=== PATIENT | male | born 1990 | race Two or more races ===

== ENCOUNTER 2016-11-21 22:14 | Emergency (ER) | payer OTHER ==
[~2016-11-21] VITALS: Ht 188 cm; Wt 104.3 kg
[~2016-11-21 22:14] MED LIST: ALPR2TAB2 PO
--- NOTE | 2016-11-21 22:20 | NUR ---
PT BIBRA. PER PT STATES SI/HI WITH PLAN, WANTS TO OD ON PILLS. PT AOX4 RR EVEN AND UNLABORED. NO SOB NOTED. NAD NOTED. NO NVD AT THIS TIME. PT PLACED ON MONITOR. PT NOT DIAPHORETIC. PT ADMITS TO DRINKING 6 BEERS EARLIER THIS EVENING.
--- NOTE | 2016-11-21 22:21 | NUR ---
URINE COLLECTED. CALLED LAB FOR RN LACTATION.
--- NOTE | 2016-11-21 22:24 | NUR ---
JULIETA CLARK AT BEDSIDE FOR EVAL.
[2016-11-21] MEDS ORDERED: OLANZAPINE 10 MG VIAL IM ONE ×2 (22:27→22:30)
[2016-11-21] MEDS ORDERED: LORAZEPAM 1 MG TABLET ONE (22:28)
[2016-11-21] MEDS ORDERED: WATER FOR INJECTION,STERILE 10 ML ONE (22:28)
[2016-11-21] MEDS ORDERED: LORAZEPAM 1 MG TABLET PO ONE (22:30)
--- NOTE | 2016-11-21 22:35 | NUR ---
LAB AT BEDSIDE FOR BLOOD DRAW.
[2016-11-21 22:46] LABS: BASOPHILS % (AUTO) 0.3 % (0.0-2.0); EOSINOPHILS # (AUTO) 0.2 /CMM (0.0-0.7); EOSINOPHILS % (AUTO) 2.5 % (0.0-6.0); HEMATOCRIT 47 % (39-51); HEMOGLOBIN 16.3 g/dL (13.5-17.5); LYMPHOCYTES # (AUTO) 2.2 /CMM (0.8-4.8); LYMPHOCYTES % (AUTO) 28.6 % (20.0-44.0); MEAN CORPUSCULAR HEMOGLOBIN 31 PG (26.0-33.0); MEAN CORPUSCULAR HGB CONC 35 g/dl (31.0-36.0); MEAN CORPUSCULAR VOLUME 88 fL (80-96); MONOCYTES # (AUTO) 0.6 /CMM (0.1-1.30); MONOCYTES % (AUTO) 7.7 % (2.0-12.0); NEUTROPHILS # (AUTO) 4.8 /CMM (1.8-8.9); NEUTROPHILS % (AUTO) 60.9 % (43.0-81.0); PLATELET COUNT (AUTO) 225 /CMM (150-450); RDW COEFFICIENT OF VARIATION 13.5 (11.5-15.0); RED BLOOD CELL COUNT(AUTO) 5.33 MIL/uL (4.5-6.0); WHITE BLOOD COUNT (AUTO) 7.8 K/uL (4.3-11.0)
[2016-11-21 22:57] LABS: CALCIUM, SERUM 7.6 mg/dL (8.5-10.1); POTASSIUM 3.9 mmol/L (3.5-5.1)
[2016-11-21 23:05] LABS: ALBUMIN 3.7 g/dL (3.4-5.0); BILIRUBIN,TOTAL 0.3 mg/dL (0.2-1.0); TOTAL PROTEIN, SERUM 7.1 g/dL (6.4-8.2)
[2016-11-21 23:05] LABS: APPEARANCE,URINE CLEAR (CLEAR); BILIRUBIN,URINE NEGATIVE (NEGATIVE); BLOOD, URINE NEGATIVE Ery/uL (NEGATIVE); COLOR,URINE YELLOW (YELLOW); KETONES,URINE TRACE (NEGATIVE); LEUKOCYTE ESTERASE ,URINE NEGATIVE (NEGATIVE); NITRITE, URINE NEGATIVE (NEGATIVE); PROTEIN,URINE NEGATIVE (NEGATIVE); UGLUCOSE NEGATIVE (NEGATIVE); UROBILINOGEN,URINE 0.2 EU/dL (0.2)
[2016-11-21 23:06] LABS: SALICYLATE 1.4 mg/dL (2.8-20.0)
[2016-11-21 23:19] LABS: RBC,URINE 0-2 /HPF (0-2); WBC,URINE 0-2 /HPF (0-3)
[2016-11-21 23:20] LABS: BACTERIA,URINE None seen /HPF (None Seen); MUCUS,URINE Few /LPF (None Seen); SQUAMOUS EPITHELIAL CELL,UR Rare /HPF (None Seen); URIC ACID CRYSTALS,URINE Many /HPF (None Seen)
--- NOTE | 2016-11-21 23:22 | NUR ---
ART AT BEDSIDE FOR EVAL.
--- NOTE | 2016-11-22 02:07 | NUR ---
REPORT GIVEN TO ROSI/RN AT [facility] ON BEHALF OF PRIMARY NURSE ANA
[2016-11-22 02:09] VITALS: BP 135/73
== END 2016-11-22 02:09 ==
LOC: ER 22:22
DX: R45.851 Suicidal ideations (principal); R45.850 Homicidal ideations; J45.909 Unspecified asthma, uncomplicated; F20.9 Schizophrenia, unspecified; F17.200 Nicotine dependence, unspecified, uncomplicated
CPT/HCPCS: 36415 ×2; 80048; 80076; 80305; 80329; 81001; 85025; 96372; 99285; 99406; A4606; G0480 ×3; J3490; Z7610; 81000-TC

== ENCOUNTER 2017-06-10 00:05 | Emergency (ER) | payer OTHER ==
[~2017-06-10] VITALS: Ht 188 cm; Wt 104.3 kg
--- NOTE | 2017-06-10 00:40 | NUR ---
26 YO MALE BB SELF, STATES HES BEEN HAVING SUICIDAL THOUGHTS AND HE HAS BEEN OFF HIS OF BIPOLAR MEDS FOR 2 MONTHS. PATIENT AMBULATED TO ER BED, SKIN WARM AND DRY, RESP EVEN AND UNLABORED. AWAITING ORDERS FROM PROVIDER, WILL CONTINUE TO MONITOR
[2017-06-10 01:18] LABS: BASOPHILS % (AUTO) 0.3 % (0.0-2.0); EOSINOPHILS % (AUTO) 0.5 % (0.0-6.0); HEMATOCRIT 47 % (39-51); HEMOGLOBIN 16.3 g/dL (13.5-17.5); LYMPHOCYTES # (AUTO) 1.7 /CMM (0.8-4.8); LYMPHOCYTES % (AUTO) 20.4 % (20.0-44.0); MEAN CORPUSCULAR HEMOGLOBIN 30 PG (26.0-33.0); MEAN CORPUSCULAR HGB CONC 35 g/dl (31.0-36.0); MEAN CORPUSCULAR VOLUME 87 fL (80-96); MONOCYTES # (AUTO) 0.8 /CMM (0.1-1.30); MONOCYTES % (AUTO) 9.1 % (2.0-12.0); NEUTROPHILS # (AUTO) 5.9 /CMM (1.8-8.9); NEUTROPHILS % (AUTO) 69.7 % (43.0-81.0); PLATELET COUNT (AUTO) 213 /CMM (150-450); RDW COEFFICIENT OF VARIATION 13.1 (11.5-15.0); RED BLOOD CELL COUNT(AUTO) 5.42 MIL/uL (4.5-6.0); WHITE BLOOD COUNT (AUTO) 8.5 K/uL (4.3-11.0)
[2017-06-10 01:25] LABS: APPEARANCE,URINE SL CLOUDY (CLEAR); BILIRUBIN,URINE 1+ (NEGATIVE); BLOOD, URINE 3+ Ery/uL (NEGATIVE); COLOR,URINE DARK YELLO (YELLOW); KETONES,URINE TRACE (NEGATIVE); LEUKOCYTE ESTERASE ,URINE 2+ (NEGATIVE); NITRITE, URINE NEGATIVE (NEGATIVE); PROTEIN,URINE TRACE mg/dl (NEGATIVE); UGLUCOSE NEGATIVE (NEGATIVE); UROBILINOGEN,URINE 0.2 EU/dL (0.2)
[2017-06-10 01:30] LABS: CALCIUM, SERUM 9.4 mg/dL (8.5-10.1); CARBON DIOXIDE 28 mmol/L (21-32); CHLORIDE 106 mmol/L (98-107); CREATININE 1.1 mg/dL (0.6-1.3); GLUCOSE 99 mg/dL (74-106); SODIUM SERUM 144 mmol/L (136-145); UREA NITROGEN, BLOOD 7 mg/dL (7-18)
[2017-06-10 01:33] LABS: BACTERIA,URINE Many /HPF (None Seen); MUCUS,URINE Few /LPF (None Seen); SQUAMOUS EPITHELIAL CELL,UR Moderate /HPF (None Seen); WBC,URINE 51-80 /HPF (0-3)
[2017-06-10 01:35] LABS: ALANINE AMINOTRANSFERASE 234 U/L (12-78); ALCOHOL, BLOOD < 3 mg/dL (0-0); ALKALINE PHOSPHATASE 67 U/L (46-116); ASPARTATE AMINOTRANSFERASE 102 U/L (15-37); BILIRUBIN,DIRECT 0.1 mg/dL (0.0-0.2); BILIRUBIN,TOTAL 0.5 mg/dL (0.2-1.0); TOTAL PROTEIN, SERUM 7.9 g/dL (6.4-8.2)
[2017-06-10 01:36] LABS: ACETAMINOPHEN 0 ug/ml (10-30)
--- NOTE | 2017-06-10 02:08 | NUR ---
PATIENT IS RESTING IN ER BED, NO DISTRESS NOTED, WILL CONTINUE TO MONITOR
--- NOTE | 2017-06-10 03:08 | NUR ---
PT ACCEPTED BY DR. IGNACIO AND CAN GO TO [facility] AFTER RN-TO-RN REPORT. [phone] ext [phone]
[2017-06-10] MEDS ORDERED: CIPROFLOXACIN HCL 500 MG TABLET ONE (03:17)
--- NOTE | 2017-06-10 03:18 | NUR ---
REPORT GIVEN TO YAKELIN AT [facility]
--- NOTE | 2017-06-10 03:19 | NUR ---
CALLED [facility] FOR TRANSPORT. #[phone] ETA: 1 HOUR
[2017-06-10] MEDS: CIPROFLOXACIN HCL 250 MG TABLET PO ONE (03:21)
[2017-06-10 04:15] VITALS: BP 133/93
== END 2017-06-10 04:16 ==
LOC: ER 00:05
DX: R45.851 Suicidal ideations (principal); F20.9 Schizophrenia, unspecified; F31.9 Bipolar disorder, unspecified; J45.909 Unspecified asthma, uncomplicated; N39.0 Urinary tract infection, site not specified; F10.10 Alcohol abuse, uncomplicated; Z59.0 Homelessness
CPT/HCPCS: 36415; 80048; 80076; 80305; 80329; 81001; 85025; 87086; 99285; A4606; G0480 ×2; Z7610; 81000-TC

== ENCOUNTER 2017-07-04 01:03 | Emergency (ER) | payer OTHER ==
[~2017-07-04] VITALS: Ht 180.3 cm; Wt 97.5 kg
[2017-07-04 01:30] VITALS: BP 127/75
--- NOTE | 2017-07-04 01:30 | NUR ---
PT BIB SELF, PT STATES HE "NEEDS MEDICAL CLEARANCE TO GO TO [facility]". PT STATES HE IS "DEPRESED". DENIES SI & HI. PT STATES HE WANTS VOLUNTARY ADMISSION TO [facility]; WAS TOLD TO GO ER FOR LAB WORK. RESP EVEN AND UNLABORED. NO S/S OF ACUTE DISTRESS NOTED. SKIN PINK AND WARM TO TOUCH. AWAITING MD ASCENCIO.
[2017-07-04 01:50] LABS: BASOPHILS # (AUTO) 0.1 /CMM (0.0-0.2); BASOPHILS % (AUTO) 0.6 % (0.0-2.0); EOSINOPHILS # (AUTO) 0.3 /CMM (0.0-0.7); EOSINOPHILS % (AUTO) 3.7 % (0.0-6.0); HEMATOCRIT 46 % (39-51); HEMOGLOBIN 15.8 g/dL (13.5-17.5); LYMPHOCYTES # (AUTO) 2.8 /CMM (0.8-4.8); LYMPHOCYTES % (AUTO) 35.3 % (20.0-44.0); MEAN CORPUSCULAR HEMOGLOBIN 30 PG (26.0-33.0); MEAN CORPUSCULAR HGB CONC 35 g/dl (31.0-36.0); MEAN CORPUSCULAR VOLUME 87 fL (80-96); MONOCYTES # (AUTO) 0.8 /CMM (0.1-1.30); MONOCYTES % (AUTO) 9.8 % (2.0-12.0); NEUTROPHILS % (AUTO) 50.6 % (43.0-81.0); PLATELET COUNT (AUTO) 231 /CMM (150-450); RDW COEFFICIENT OF VARIATION 12.9 (11.5-15.0); RED BLOOD CELL COUNT(AUTO) 5.26 MIL/uL (4.5-6.0); WHITE BLOOD COUNT (AUTO) 7.9 K/uL (4.3-11.0)
[2017-07-04 01:56] LABS: APPEARANCE,URINE CLEAR (CLEAR); BILIRUBIN,URINE NEGATIVE (NEGATIVE); BLOOD, URINE NEGATIVE Ery/uL (NEGATIVE); COLOR,URINE YELLOW (YELLOW); KETONES,URINE TRACE (NEGATIVE); LEUKOCYTE ESTERASE ,URINE NEGATIVE (NEGATIVE); NITRITE, URINE NEGATIVE (NEGATIVE); PROTEIN,URINE NEGATIVE (NEGATIVE); UGLUCOSE NEGATIVE (NEGATIVE); UROBILINOGEN,URINE 0.2 EU/dL (0.2)
[2017-07-04 02:01] LABS: BACTERIA,URINE Few /HPF (None Seen); MUCUS,URINE Few /LPF (None Seen); RBC,URINE 0-2 /HPF (0-2); SQUAMOUS EPITHELIAL CELL,UR Moderate /HPF (None Seen); WBC,URINE 0-2 /HPF (0-3)
[2017-07-04 02:04] LABS: CALCIUM, SERUM 8.5 mg/dL (8.5-10.1); CREATININE 1.3 mg/dL (0.6-1.3)
[2017-07-04 02:11] LABS: ALBUMIN 3.8 g/dL (3.4-5.0); BILIRUBIN,DIRECT 0.1 mg/dL (0.0-0.2); BILIRUBIN,TOTAL 0.5 mg/dL (0.2-1.0); TOTAL PROTEIN, SERUM 7.4 g/dL (6.4-8.2)
[2017-07-04 02:14] LABS: SALICYLATE 1.1 mg/dL (2.8-20.0)
--- NOTE | 2017-07-04 02:15 | NUR ---
Patient is resting comfortably in bed with eyes closed. Easily aroused. VSS
--- NOTE | 2017-07-04 02:37 | NUR ---
FAXED INFO TO [facility]
--- NOTE | 2017-07-04 02:58 | NUR ---
RECEIVED CALL FROM [facility]. PT ACCEPTED; BED AVAILABLE.
== END 2017-07-04 03:25 | disposition home or self-care (01) ==
LOC: ER 01:06
DX: R45.851 Suicidal ideations (principal); F20.9 Schizophrenia, unspecified; J45.909 Unspecified asthma, uncomplicated; F15.10 Other stimulant abuse, uncomplicated; F10.10 Alcohol abuse, uncomplicated
CPT/HCPCS: 36415; 80048; 80076; 80305; 80329; 81001; 85025; 99284; A4606; G0480 ×2; Z7610; 81000-TC

== ENCOUNTER 2018-01-25 03:42 | Emergency (ER) | payer OTHER ==
[~2018-01-25] VITALS: Ht 190.5 cm; Wt 124.7 kg
--- NOTE | 2018-01-25 04:35 | NUR ---
PT AMBULATORY TO ER BED 13. BBSELF C/C OF HEARING VOICES TO HURT HIMSELF BY CUTTING HIS WRIST. +SI/-HI. PT PLACED ON FORMAL WAITER/WAITRESS. VSS/RESP EVEN UNLABORED/NAD NOTED/SKIN WARM AND DRY/AFEBRILE/DENIES N-V-D/AOX4. AWAITNG MD ASCENCIO.
--- NOTE | 2018-01-25 04:40 | NUR ---
LAB AT BEDSIDE FOR DRAW. URINE SPECIMEN OBTAINED AND SENT TO THE LAB.
[2018-01-25 04:53] LABS: APPEARANCE,URINE CLEAR (CLEAR); BILIRUBIN,URINE NEGATIVE (NEGATIVE); BLOOD, URINE NEGATIVE Ery/uL (NEGATIVE); COLOR,URINE YELLOW (YELLOW); KETONES,URINE NEGATIVE (NEGATIVE); LEUKOCYTE ESTERASE ,URINE NEGATIVE (NEGATIVE); NITRITE, URINE NEGATIVE (NEGATIVE); PROTEIN,URINE NEGATIVE (NEGATIVE); UGLUCOSE NEGATIVE (NEGATIVE); UROBILINOGEN,URINE 0.2 EU/dL (0.2)
[2018-01-25 04:54] LABS: BASOPHILS % (AUTO) 0.2 % (0.0-2.0); EOSINOPHILS % (AUTO) 0.8 % (0.0-6.0); HEMATOCRIT 47 % (39-51); HEMOGLOBIN 15.5 g/dL (13.5-17.5); LYMPHOCYTES % (AUTO) 27.4 % (20.0-44.0); MEAN CORPUSCULAR HEMOGLOBIN 30 PG (26.0-33.0); MEAN CORPUSCULAR HGB CONC 33 g/dl (31.0-36.0); MEAN CORPUSCULAR VOLUME 89 fL (80-96); MONOCYTES # (AUTO) 0.5 /CMM (0.1-1.30); MONOCYTES % (AUTO) 7.1 % (2.0-12.0); NEUTROPHILS # (AUTO) 4.6 /CMM (1.8-8.9); NEUTROPHILS % (AUTO) 64.5 % (43.0-81.0); PLATELET COUNT (AUTO) 248 /CMM (150-450); RED BLOOD CELL COUNT(AUTO) 5.24 MIL/uL (4.5-6.0); WHITE BLOOD COUNT (AUTO) 7.2 K/uL (4.3-11.0)
[2018-01-25 05:10] LABS: CALCIUM, SERUM 8.6 mg/dL (8.5-10.1); CARBON DIOXIDE 28 mmol/L (21-32); CHLORIDE 105 mmol/L (98-107); CREATININE 1.1 mg/dL (0.6-1.3); GLUCOSE 100 mg/dL (74-106); POTASSIUM 3.5 mmol/L (3.5-5.1); SODIUM SERUM 135 mmol/L (136-145); UREA NITROGEN, BLOOD 10 mg/dL (7-18)
[2018-01-25 05:13] LABS: ALANINE AMINOTRANSFERASE 53 U/L (12-78); ALBUMIN 3.9 g/dL (3.4-5.0); ALCOHOL, BLOOD 80 mg/dL (0-0); ALKALINE PHOSPHATASE 78 U/L (46-116); ASPARTATE AMINOTRANSFERASE 20 U/L (15-37); BILIRUBIN,DIRECT 0.1 mg/dL (0.0-0.2); BILIRUBIN,TOTAL 0.2 mg/dL (0.2-1.0); TOTAL PROTEIN, SERUM 7.7 g/dL (6.4-8.2)
[2018-01-25 05:15] LABS: ACETAMINOPHEN < 0 ug/ml (10-30); SALICYLATE 2.3 mg/dL (2.8-20.0)
--- NOTE | 2018-01-25 06:28 | NUR ---
PT RESTING QUIETLY, AROUSES EASILY TO VOICE. RN TO CONTINUE MONITORING PT PROVIDING SAFETY/COMFORT MEASURES.
--- NOTE | 2018-01-25 07:09 | NUR ---
ENDORSED TO MITCHEL ESPINAL FOR TESSY.
--- NOTE | 2018-01-25 08:21 | NUR ---
BAMBI RN,ELECTRICAL DISCHARGE MACHINE OPERATOR CALLED FOR EVAL
--- NOTE | 2018-01-25 11:48 | NUR ---
Report given to MITCHEL Kaur for TESSY [facility] accepted by Dr Lucero.
--- NOTE | 2018-01-25 11:50 | NUR ---
CALLED [facility] AND SPOKE TO STAVE LOG RIPSAW OPERATOR CRISTHIAN TO ARRANGE A BLS TRANSPORT TO [facility]. WAS GIVEN A SAFETY INSTRUCTOR ETA OF 1300. TRIP #: [id number]
[2018-01-25 12:26] VITALS: BP 138/83
--- NOTE | 2018-01-25 12:42 | NUR ---
Patient discharged to [facility] in stable condition. Written and verbal after care instructions given. Patient verbalizes understanding of instruction.
== END 2018-01-25 12:51 ==
LOC: ER 03:44
DX: R45.851 Suicidal ideations (principal); F10.129 Alcohol abuse with intoxication, unspecified; J45.909 Unspecified asthma, uncomplicated; F20.9 Schizophrenia, unspecified; Z79.899 Other long term (current) drug therapy; Y90.4 Blood alcohol level of 80-99 mg/100 ml
CPT/HCPCS: 36415; 80048; 80076; 80305; 80329; 81001; 85025; 99285; A4606; G0480 ×2; Z7610; 81000-TC

== ENCOUNTER 2018-06-14 07:54 | Emergency (ER) | payer OTHER ==
[~2018-06-14] VITALS: Ht 180.3 cm; Wt 108.9 kg
--- NOTE | 2018-06-14 07:55 | NUR ---
AAOX3, [address]IBRA [address] FOR ETOH. RR IS EVEN AND UNLABORED WITH NAD NOTED. SKIN IS WARM AND DRY. PLACED ON THE MONITOR. WILL CONTINUOUSLY MONITOR THE PATIENT. DR VIZCARRA AT FOR EVAL.
[2018-06-14 08:14] LABS: APPEARANCE,URINE CLEAR (CLEAR); BILIRUBIN,URINE NEGATIVE (NEGATIVE); BLOOD, URINE NEGATIVE Ery/uL (NEGATIVE); COLOR,URINE YELLOW (YELLOW); KETONES,URINE NEGATIVE (NEGATIVE); LEUKOCYTE ESTERASE ,URINE NEGATIVE (NEGATIVE); NITRITE, URINE NEGATIVE (NEGATIVE); PROTEIN,URINE NEGATIVE (NEGATIVE); UGLUCOSE NEGATIVE (NEGATIVE); UROBILINOGEN,URINE 0.2 EU/dL (0.2)
[2018-06-14 08:30] LABS: BASOPHILS % (AUTO) 0.4 % (0.0-2.0); EOSINOPHILS % (AUTO) 3.7 % (0.0-6.0); HEMATOCRIT 46 % (39-51); HEMOGLOBIN 15.7 g/dL (13.5-17.5); LYMPHOCYTES # (AUTO) 2.1 /CMM (0.8-4.8); LYMPHOCYTES % (AUTO) 22.4 % (20.0-44.0); MEAN CORPUSCULAR HGB CONC 34 g/dl (31.0-36.0); MEAN CORPUSCULAR VOLUME 89 fL (80-96); MONOCYTES % (AUTO) 10.5 % (2.0-12.0); NEUTROPHILS # (AUTO) 5.9 /CMM (1.8-8.9); PLATELET COUNT (AUTO) 241 /CMM (150-450); RED BLOOD CELL COUNT(AUTO) 5.21 MIL/uL (4.5-6.0); WHITE BLOOD COUNT (AUTO) 9.3 K/uL (4.3-11.0)
[2018-06-14] MEDS ORDERED: IV NS 0.9% 1,000 ML BAG IV ONE (08:30)
--- NOTE | 2018-06-14 08:30 | NUR ---
Patient is resting comfortably in bed with eyes closed. Easily aroused. VSS
[2018-06-14 08:40] LABS: CALCIUM, SERUM 8.5 mg/dL (8.5-10.1); CARBON DIOXIDE 29 mmol/L (21-32); CHLORIDE 104 mmol/L (98-107); CREATININE 0.9 mg/dL (0.6-1.3); GLUCOSE 79 mg/dL (74-106); POTASSIUM 3.6 mmol/L (3.5-5.1); SODIUM SERUM 141 mmol/L (136-145); UREA NITROGEN, BLOOD 6 mg/dL (7-18)
[2018-06-14 08:45] LABS: ALANINE AMINOTRANSFERASE 66 U/L (12-78); ALBUMIN 3.8 g/dL (3.4-5.0); ALCOHOL, BLOOD 140 mg/dL (0-0); ALKALINE PHOSPHATASE 80 U/L (46-116); ASPARTATE AMINOTRANSFERASE 45 U/L (15-37); BILIRUBIN,DIRECT 0.2 mg/dL (0.0-0.2); BILIRUBIN,TOTAL 0.5 mg/dL (0.2-1.0); TOTAL PROTEIN, SERUM 7.8 g/dL (6.4-8.2)
[2018-06-14 08:46] LABS: ACETAMINOPHEN < 2 ug/ml (10-30); SALICYLATE 1.4 mg/dL (2.8-20.0)
--- NOTE | 2018-06-14 11:17 | NUR ---
IV removed. Catheter intact and site benign. Pressure and 4x4 applied to site. No bleeding noted.
--- NOTE | 2018-06-14 11:23 | NUR ---
Patient discharged to home in stable condition. Written and verbal after care instructions given. Patient verbalizes understanding of instruction.
[2018-06-14 11:29] VITALS: BP 120/82
== END 2018-06-14 11:20 | disposition home or self-care (01) ==
LOC: ER 07:55
DX: F10.129 Alcohol abuse with intoxication, unspecified (principal); F39 Unspecified mood [affective] disorder; F15.10 Other stimulant abuse, uncomplicated; E86.0 Dehydration; F25.9 Schizoaffective disorder, unspecified; J45.909 Unspecified asthma, uncomplicated; Z79.899 Other long term (current) drug therapy; Z59.0 Homelessness; Y90.6 Blood alcohol level of 120-199 mg/100 ml
CPT/HCPCS: 36415; 80048; 80076; 80305; 80329; 81001; 85025; 93005; 96360; 99284; A4606; G0480 ×2; J7030; Z7610; 81000-TC

== ENCOUNTER 2018-06-28 22:56 | Emergency (ER) | payer OTHER ==
[~2018-06-28] VITALS: Ht 190.5 cm; Wt 109.3 kg
--- NOTE | 2018-06-28 23:05 | NUR ---
Pt to er s/o suicidal ideation. Pt denies any medical complaints. pt vital signs stable. no signs of distress noted. pt to er bed, changed into gown. pt belongings taken from patient and si precautions implemented. will cont to monitor pt.
[2018-06-28 23:27] LABS: APPEARANCE,URINE Clear (CLEAR); BILIRUBIN,URINE Negative (NEGATIVE); BLOOD, URINE Negative Ery/uL (NEGATIVE); COLOR,URINE Yellow (YELLOW); KETONES,URINE Trace (NEGATIVE); LEUKOCYTE ESTERASE ,URINE Small (NEGATIVE); NITRITE, URINE Negative (NEGATIVE); PROTEIN,URINE Negative (NEGATIVE); UGLUCOSE Negative (NEGATIVE); UROBILINOGEN,URINE 0.2 EU/dL (0.2)
[2018-06-28 23:33] LABS: BASOPHILS % (AUTO) 0.2 % (0.0-2.0); EOSINOPHILS % (AUTO) 0.1 % (0.0-6.0); HEMATOCRIT 44 % (39-51); HEMOGLOBIN 15.4 g/dL (13.5-17.5); LYMPHOCYTES # (AUTO) 1.7 /CMM (0.8-4.8); LYMPHOCYTES % (AUTO) 15.4 % (20.0-44.0); MEAN CORPUSCULAR HGB CONC 35 g/dl (31.0-36.0); MEAN CORPUSCULAR VOLUME 88 fL (80-96); MONOCYTES # (AUTO) 0.5 /CMM (0.1-1.30); MONOCYTES % (AUTO) 4.3 % (2.0-12.0); NEUTROPHILS # (AUTO) 8.7 /CMM (1.8-8.9); PLATELET COUNT (AUTO) 279 /CMM (150-450); RED BLOOD CELL COUNT(AUTO) 5.01 MIL/uL (4.5-6.0); WHITE BLOOD COUNT (AUTO) 10.9 K/uL (4.3-11.0)
[2018-06-28 23:34] LABS: BACTERIA,URINE 1+ /HPF (None Seen); RBC,URINE NONE SEEN /HPF (0-2); SQUAMOUS EPITHELIAL CELL,UR Few /HPF (None Seen)
[2018-06-28 23:48] LABS: ACETAMINOPHEN < 2 ug/ml (10-30); ALANINE AMINOTRANSFERASE 59 U/L (12-78); ALBUMIN 3.6 g/dL (3.4-5.0); ALCOHOL, BLOOD 133 mg/dL (0-0); ALKALINE PHOSPHATASE 71 U/L (46-116); ASPARTATE AMINOTRANSFERASE 24 U/L (15-37); BILIRUBIN,TOTAL 0.2 mg/dL (0.2-1.0); CALCIUM, SERUM 8.4 mg/dL (8.5-10.1); CARBON DIOXIDE 25 mmol/L (21-32); CHLORIDE 105 mmol/L (98-107); GLUCOSE 108 mg/dL (74-106); POTASSIUM 3.7 mmol/L (3.5-5.1); SALICYLATE 2.1 mg/dL (2.8-20.0); SODIUM SERUM 139 mmol/L (136-145); TOTAL PROTEIN, SERUM 7.5 g/dL (6.4-8.2); UREA NITROGEN, BLOOD 13 mg/dL (7-18)
--- NOTE | 2018-06-29 01:15 | NUR ---
Marcy GRULLON at bedside for eval.
--- NOTE | 2018-06-29 06:16 | NUR ---
Pt sleeping in [facility]. No signs of distress noted. Pt vital signs within normal limits. will cont to monitor pt.
[2018-06-29 06:17] VITALS: BP 124/80
--- NOTE | 2018-06-29 08:09 | NUR ---
Called [facility] and spoke with Dana. She reported that they do not have any beds available at this time and will call back later with any updates on bed availability.
--- NOTE | 2018-06-29 11:50 | NUR ---
[facility] for transport, ETA 1230
--- NOTE | 2018-06-29 13:25 | NUR ---
[facility]
== END 2018-06-29 13:44 ==
LOC: ER 22:56
DX: F10.129 Alcohol abuse with intoxication, unspecified (principal); R45.851 Suicidal ideations; F29 Unspecified psychosis not due to a substance or known physiological condition; J45.909 Unspecified asthma, uncomplicated; F20.9 Schizophrenia, unspecified; F31.9 Bipolar disorder, unspecified; F17.200 Nicotine dependence, unspecified, uncomplicated; R45.1 Restlessness and agitation; R00.0 Tachycardia, unspecified; Y90.6 Blood alcohol level of 120-199 mg/100 ml; Z59.0 Homelessness
CPT/HCPCS: 36415; 80048; 80076; 80305; 80307; 80329; 81001; 85025; 87086; 99285; A4606; G0480; Z7610; 81000-TC

== ENCOUNTER 2018-07-10 04:26 | Emergency (ER) | payer OTHER ==
[~2018-07-10] VITALS: Ht 188 cm; Wt 90.7 kg
--- NOTE | 2018-07-10 04:53 | NUR ---
PT BIBSELF FROM [facility] C/C "I WANT TO CUT MY WRISTS". +SI, DENIES HI. PT IN BED 6. WILL CONTINUE TO MONITOR.
--- NOTE | 2018-07-10 04:54 | NUR ---
[facility] AT BEDSIDE FOR LAB DRAW
[2018-07-10 05:07] LABS: BASOPHILS % (AUTO) 0.5 % (0.0-2.0); EOSINOPHILS % (AUTO) 2.8 % (0.0-6.0); HEMATOCRIT 44 % (39-51); HEMOGLOBIN 15.1 g/dL (13.5-17.5); LYMPHOCYTES # (AUTO) 2.5 /CMM (0.8-4.8); LYMPHOCYTES % (AUTO) 32.9 % (20.0-44.0); MEAN CORPUSCULAR HGB CONC 34 g/dl (31.0-36.0); MEAN CORPUSCULAR VOLUME 89 fL (80-96); MONOCYTES # (AUTO) 0.8 /CMM (0.1-1.30); MONOCYTES % (AUTO) 10.3 % (2.0-12.0); NEUTROPHILS # (AUTO) 4.1 /CMM (1.8-8.9); NEUTROPHILS % (AUTO) 53.5 % (43.0-81.0); PLATELET COUNT (AUTO) 226 /CMM (150-450); RED BLOOD CELL COUNT(AUTO) 4.93 MIL/uL (4.5-6.0); WHITE BLOOD COUNT (AUTO) 7.6 K/uL (4.3-11.0)
[2018-07-10 05:13] LABS: APPEARANCE,URINE CLEAR (CLEAR); BILIRUBIN,URINE NEGATIVE (NEGATIVE); BLOOD, URINE NEGATIVE Ery/uL (NEGATIVE); COLOR,URINE YELLOW (YELLOW); KETONES,URINE NEGATIVE (NEGATIVE); LEUKOCYTE ESTERASE ,URINE 1+ (NEGATIVE); NITRITE, URINE NEGATIVE (NEGATIVE); PROTEIN,URINE NEGATIVE (NEGATIVE); UGLUCOSE NEGATIVE (NEGATIVE); UROBILINOGEN,URINE 0.2 EU/dL (0.2)
[2018-07-10 05:14] LABS: CARBON DIOXIDE 30 mmol/L (21-32); CHLORIDE 104 mmol/L (98-107); CREATININE 0.8 mg/dL (0.6-1.3); GLUCOSE 102 mg/dL (74-106); POTASSIUM 4.2 mmol/L (3.5-5.1); SODIUM SERUM 141 mmol/L (136-145); UREA NITROGEN, BLOOD 10 mg/dL (7-18)
[2018-07-10 05:21] LABS: ALANINE AMINOTRANSFERASE 45 U/L (12-78); ALBUMIN 3.8 g/dL (3.4-5.0); ALCOHOL, BLOOD < 3 mg/dL (0-0); ALKALINE PHOSPHATASE 68 U/L (46-116); ASPARTATE AMINOTRANSFERASE 24 U/L (15-37); BILIRUBIN,DIRECT 0.1 mg/dL (0.0-0.2); BILIRUBIN,TOTAL 0.4 mg/dL (0.2-1.0); TOTAL PROTEIN, SERUM 7.2 g/dL (6.4-8.2)
[2018-07-10 05:22] LABS: ACETAMINOPHEN 0 ug/ml (10-30); SALICYLATE 2.6 mg/dL (2.8-20.0)
[2018-07-10 05:24] LABS: BACTERIA,URINE Few /HPF (None Seen); SQUAMOUS EPITHELIAL CELL,UR Few /HPF (None Seen)
--- NOTE | 2018-07-10 06:36 | NUR ---
Patient is resting comfortably in bed with eyes closed. Easily aroused.
--- NOTE | 2018-07-10 07:21 | NUR ---
ART CALLED BACK
--- NOTE | 2018-07-10 07:36 | NUR ---
REPORT GIVEN TO TIA DAMIAN RN FOR TESSY
--- NOTE | 2018-07-10 07:50 | NUR ---
RECEIVED REPORT FROM MITCHEL MCDANIEL FOR TESSY, PT IS ASLEEP ON BED EASILY AROUSED, AWAITING CLINICAL REHABILITATION LIAISON FOR EVAL.
--- NOTE | 2018-07-10 08:45 | NUR ---
ART JAVA J2EE ARCHITECT AT BEDSIDE FOR EVAL.
--- NOTE | 2018-07-10 10:30 | NUR ---
CALL BACK FROM MARIA GUADALUPE FROM [facility],ACCEPTED BY DR RESENDIZ,REPORT TO [phone] X [phone]
--- NOTE | 2018-07-10 11:11 | NUR ---
CALLED BLS TRANSPORT WITH [facility]. SPOKE WITH DEVYN. ETA 30 MINUTES Trip#[id number]
[2018-07-10 11:15] VITALS: BP 119/72
--- NOTE | 2018-07-10 11:15 | NUR ---
REPORT GIVEN TO LANDY FOR PT TRANSFER TO [facility].
--- NOTE | 2018-07-10 11:21 | NUR ---
ETA FOR AMBULNZ NOW 1400
--- NOTE | 2018-07-10 14:26 | NUR ---
Patient eloped from facility. ER MD notified.
== END 2018-07-10 14:30 | disposition left against medical advice (07) ==
LOC: ER 04:26
DX: R45.851 Suicidal ideations (principal); J45.909 Unspecified asthma, uncomplicated; F20.9 Schizophrenia, unspecified; F31.9 Bipolar disorder, unspecified; F10.10 Alcohol abuse, uncomplicated; F17.200 Nicotine dependence, unspecified, uncomplicated; Y90.0 Blood alcohol level of less than 20 mg/100 ml; Z59.0 Homelessness
CPT/HCPCS: 36415; 80048; 80076; 80305; 80307; 80329; 81001; 85025; 87086; 99283; A4606; G0480; 81000-TC

== ENCOUNTER 2018-07-24 19:57 | Emergency (ER) | payer OTHER ==
[~2018-07-24] VITALS: Ht 190.5 cm; Wt 104.8 kg
--- NOTE | 2018-07-24 20:30 | NUR ---
BIB SELF C/C PSYCH. "I WANT TO HURT MYSELF, I WANT TO CUT MYSELF." NO INJURIES/ TRUAMA NOTED. NO S/S SOB. SKIN PINK, WARM, DRY. AMBULATED TO HOSPITAL BED WITH STABLE GAIT. NAD. VSS. PT DENIES ANY FURTHER MEDICAL COMPLAINTS. WILL CONTINUE TO MONITOR.
[2018-07-24 20:51] LABS: BASOPHILS % (AUTO) 0.3 % (0.0-2.0); EOSINOPHILS % (AUTO) 2.3 % (0.0-6.0); HEMATOCRIT 47 % (39-51); LYMPHOCYTES # (AUTO) 2.1 /CMM (0.8-4.8); MEAN CORPUSCULAR HGB CONC 34 g/dl (31.0-36.0); MEAN CORPUSCULAR VOLUME 90 fL (80-96); MONOCYTES # (AUTO) 0.6 /CMM (0.1-1.30); MONOCYTES % (AUTO) 9.7 % (2.0-12.0); NEUTROPHILS # (AUTO) 3.6 /CMM (1.8-8.9); NEUTROPHILS % (AUTO) 55.7 % (43.0-81.0); PLATELET COUNT (AUTO) 251 /CMM (150-450); RED BLOOD CELL COUNT(AUTO) 5.24 MIL/uL (4.5-6.0); WHITE BLOOD COUNT (AUTO) 6.4 K/uL (4.3-11.0)
[2018-07-24 21:00] LABS: CALCIUM, SERUM 8.5 mg/dL (8.5-10.1); POTASSIUM 3.9 mmol/L (3.5-5.1)
[2018-07-24 21:06] LABS: ALBUMIN 3.7 g/dL (3.4-5.0); BILIRUBIN,DIRECT 0.1 mg/dL (0.0-0.2); BILIRUBIN,TOTAL 0.1 mg/dL (0.2-1.0); SALICYLATE 2.2 mg/dL (2.8-20.0); TOTAL PROTEIN, SERUM 7.4 g/dL (6.4-8.2)
--- NOTE | 2018-07-24 21:40 | NUR ---
Patient is resting comfortably in bed with eyes closed. Easily aroused. VSS
[2018-07-24 22:28] LABS: APPEARANCE,URINE CLEAR (CLEAR); BILIRUBIN,URINE NEGATIVE (NEGATIVE); BLOOD, URINE NEGATIVE Ery/uL (NEGATIVE); COLOR,URINE YELLOW (YELLOW); KETONES,URINE TRACE (NEGATIVE); LEUKOCYTE ESTERASE ,URINE NEGATIVE (NEGATIVE); NITRITE, URINE NEGATIVE (NEGATIVE); PROTEIN,URINE NEGATIVE (NEGATIVE); UGLUCOSE NEGATIVE (NEGATIVE); UROBILINOGEN,URINE 0.2 EU/dL (0.2)
[2018-07-24 22:44] LABS: BACTERIA,URINE None seen /HPF (None Seen); MUCUS,URINE Few /LPF (None Seen); RBC,URINE NONE SEEN /HPF (0-2); SQUAMOUS EPITHELIAL CELL,UR Few /HPF (None Seen); WBC,URINE 0-2 /HPF (0-3)
--- NOTE | 2018-07-24 23:51 | NUR ---
AMBULATED TO BATHROOM WITH STABLE GAIT. NAD. VSS.
--- NOTE | 2018-07-25 02:39 | NUR ---
CORE MAKER HELPER ART AT BEDSIDE
--- NOTE | 2018-07-25 05:33 | NUR ---
PT ACCEPTED TO [facility] BY DR SPIVEY. # FOR REPORT [phone].
--- NOTE | 2018-07-25 05:34 | NUR ---
AMBULATED TO BATHROOM WITH STABLE GAIT
--- NOTE | 2018-07-25 05:36 | NUR ---
[facility] CALLED FOR TRANSPORT. ETA 2455,. TRIP#[id number]
--- NOTE | 2018-07-25 07:26 | NUR ---
endorsed to oncoming shift nayan griffin. pt stable condition. vss. nad.
--- NOTE | 2018-07-25 07:40 | NUR ---
report given to linda leija
--- NOTE | 2018-07-25 07:41 | NUR ---
pt transported to [facility] via ambulance. vss. nad. stable condition.
[2018-07-25 07:42] VITALS: BP 118/74
== END 2018-07-25 07:43 | disposition short-term general hospital (02) ==
LOC: ER 19:57
DX: R45.851 Suicidal ideations (principal); F10.20 Alcohol dependence, uncomplicated; F20.9 Schizophrenia, unspecified; J45.909 Unspecified asthma, uncomplicated; F31.9 Bipolar disorder, unspecified; F17.200 Nicotine dependence, unspecified, uncomplicated; Y90.6 Blood alcohol level of 120-199 mg/100 ml; Z59.0 Homelessness
CPT/HCPCS: 36415; 80048; 80076; 80305; 80307 ×2; 80329; 81001; 85025; 99285; A4606; G0480; 81000-TC

== ENCOUNTER 2018-09-29 14:24 | Emergency (ER) | payer OTHER ==
--- NOTE | 2018-09-29 14:30 | NUR ---
called No response
--- NOTE | 2018-09-29 14:45 | NUR ---
called No response
--- NOTE | 2018-09-29 14:56 | NUR ---
Called No response-Esme
== END 2018-09-29 14:57 | disposition home or self-care (01) ==
LOC: ER 14:24
DX: Z53.21 Procedure and treatment not carried out due to patient leaving prior to being seen by health care provider (principal)

== ENCOUNTER 2018-09-29 20:34 | Emergency (ER) | payer OTHER ==
[~2018-09-29] VITALS: Ht 190.5 cm; Wt 106.6 kg
--- NOTE | 2018-09-29 20:56 | NUR ---
CALLED PT TO BE TRIAGED, NO ANSWER
--- NOTE | 2018-09-29 21:06 | NUR ---
BIBSELF C/O SI, PLAN TO CUT THROAT. -HI, -A/V HALLUCINATION REQUESTING VOLUNTARY ADMISSION TO [facility]. PT HAS ATTEMPTED ON PRIOR OCCASIONS. AOX3, AMB, VSS, RR EVEN AND UNLABORED ON RA. SKIN INTACT. SUICIDE PRECAUTIONS IMPLEMENTED. URINE SENT TO STAT LAB. READY FOR EVAL.
--- NOTE | 2018-09-29 21:30 | NUR ---
URINE COLLECTED AND SENT TO LAB
[2018-09-29 21:46] LABS: APPEARANCE,URINE Clear (CLEAR); BILIRUBIN,URINE Negative (NEGATIVE); BLOOD, URINE Negative Ery/uL (NEGATIVE); COLOR,URINE Yellow (YELLOW); KETONES,URINE Negative (NEGATIVE); LEUKOCYTE ESTERASE ,URINE Negative (NEGATIVE); NITRITE, URINE Negative (NEGATIVE); PH,URINE 5.5 (5.0-8.0); PROTEIN,URINE Negative (NEGATIVE); UGLUCOSE Negative (NEGATIVE); UROBILINOGEN,URINE 0.2 EU/dL (0.2)
[2018-09-29 22:10] LABS: BASOPHILS # (AUTO) 0.1 /CMM (0.0-0.2); BASOPHILS % (AUTO) 0.6 % (0.0-2.0); EOSINOPHILS % (AUTO) 2.1 % (0.0-6.0); HEMATOCRIT 50 % (39-51); LYMPHOCYTES # (AUTO) 2.2 /CMM (0.8-4.8); MEAN CORPUSCULAR HGB CONC 34 g/dl (31.0-36.0); MEAN CORPUSCULAR VOLUME 90 fL (80-96); MONOCYTES # (AUTO) 0.7 /CMM (0.1-1.30); MONOCYTES % (AUTO) 7.9 % (2.0-12.0); NEUTROPHILS # (AUTO) 6.1 /CMM (1.8-8.9); NEUTROPHILS % (AUTO) 65.4 % (43.0-81.0); PLATELET COUNT (AUTO) 270 /CMM (150-450); RED BLOOD CELL COUNT(AUTO) 5.52 MIL/uL (4.5-6.0); WHITE BLOOD COUNT (AUTO) 9.4 K/uL (4.3-11.0)
[2018-09-29 22:16] LABS: CALCIUM, SERUM 8.5 mg/dL (8.5-10.1); CREATININE 1.1 mg/dL (0.6-1.3); POTASSIUM 3.9 mmol/L (3.5-5.1)
[2018-09-29 22:22] LABS: BILIRUBIN,DIRECT 0.1 mg/dL (0.0-0.2); BILIRUBIN,TOTAL 0.3 mg/dL (0.2-1.0); TOTAL PROTEIN, SERUM 7.6 g/dL (6.4-8.2)
[2018-09-29 22:23] LABS: SALICYLATE 2.1 mg/dL (2.8-20.0)
--- NOTE | 2018-09-29 23:46 | NUR ---
Patient is resting comfortably in bed with eyes closed. Easily aroused. VSS
--- NOTE | 2018-09-29 23:55 | NUR ---
CALLED ZONIA CALLEJAS (CRISIS TEAM) FOR PSYCH EVAL
--- NOTE | 2018-09-30 01:00 | NUR ---
ZONIA GOLF PLAYER ASSISTANT AT BEDSIDE FOR EVALUATION
--- NOTE | 2018-09-30 02:30 | NUR ---
PT ADMITTED TO [facility] ADMITTING MD: DR. IGNACIO NUMBER FOR REPORT [phone]
--- NOTE | 2018-09-30 02:35 | NUR ---
CALLED [facility] FOR TRANSPORTATION TRIP NUMBER: [id number]
--- NOTE | 2018-09-30 02:41 | NUR ---
GAVE REPORT TO MITCHEL CROCKETT FOR TESSY
--- NOTE | 2018-09-30 03:25 | NUR ---
KARI REPORT TO [place] [id number] FOR TRANSPORTATION TESSY
[2018-09-30 03:26] VITALS: BP 116/83
== END 2018-09-30 03:28 ==
LOC: ER 20:36
DX: R45.851 Suicidal ideations (principal); F20.9 Schizophrenia, unspecified; F10.10 Alcohol abuse, uncomplicated; J45.909 Unspecified asthma, uncomplicated; F31.9 Bipolar disorder, unspecified; F17.200 Nicotine dependence, unspecified, uncomplicated; Y90.5 Blood alcohol level of 100-119 mg/100 ml; Z59.0 Homelessness
CPT/HCPCS: 36415; 80048; 80076; 80305; 80307 ×2; 80329; 81001; 85025; 99285; G0480; 81000-TC

== ENCOUNTER 2018-10-23 01:54 | Emergency (ER) ==
[~2018-10-23] VITALS: Ht 190.5 cm; Wt 106.6 kg
--- NOTE | 2018-10-23 02:10 | NUR ---
ART, BRANCH OR DEPARTMENT CHIEF LIBRARIAN AT BEDSIDE
--- NOTE | 2018-10-23 02:15 | NUR ---
BIB SELF. AAOX4. NAD NOTED, BREATHING IS EVEN AND UNLABORED. AMBULATORY. C/O SUICIDAL THOUGHTS. UPON ASSESSMENT PT DENIES OF HAVING ANY PLANS. HE DENIES HI. NO COMPLAINTS OF ANY PAIN. TO ER BED 15. PT BELONGINS HAVE BEEN FROM PT AND KEPT AT NURSING STATION. BODY SEARCH DONE. WILL CONTINUE TO MONITOR
--- NOTE | 2018-10-23 02:21 | NUR ---
PHLE[facility] AT [facility] FOR LAB DRAW
[2018-10-23 02:30] LABS: BASOPHILS # (AUTO) 0.1 /CMM (0.0-0.2); BASOPHILS % (AUTO) 0.5 % (0.0-2.0); EOSINOPHILS % (AUTO) 2.9 % (0.0-6.0); HEMATOCRIT 46 % (39-51); LYMPHOCYTES # (AUTO) 3.1 /CMM (0.8-4.8); LYMPHOCYTES % (AUTO) 30.5 % (20.0-44.0); MEAN CORPUSCULAR HGB CONC 35 g/dl (31.0-36.0); MEAN CORPUSCULAR VOLUME 89 fL (80-96); MONOCYTES # (AUTO) 0.8 /CMM (0.1-1.30); NEUTROPHILS % (AUTO) 58.1 % (43.0-81.0); PLATELET COUNT (AUTO) 256 /CMM (150-450); RED BLOOD CELL COUNT(AUTO) 5.14 MIL/uL (4.5-6.0); WHITE BLOOD COUNT (AUTO) 10.3 K/uL (4.3-11.0)
[2018-10-23 02:38] LABS: CALCIUM, SERUM 8.5 mg/dL (8.5-10.1); POTASSIUM 3.8 mmol/L (3.5-5.1)
[2018-10-23 02:44] LABS: ALBUMIN 3.8 g/dL (3.4-5.0); BILIRUBIN,DIRECT 0.1 mg/dL (0.0-0.2); BILIRUBIN,TOTAL 0.2 mg/dL (0.2-1.0); SALICYLATE 3.8 mg/dL (2.8-20.0); TOTAL PROTEIN, SERUM 7.3 g/dL (6.4-8.2)
--- NOTE | 2018-10-23 02:51 | NUR ---
PT GIVEN SPECIMEN CUP FOR URINE HOWEVER HE IS STILL NOT ABLE TO PROVIDE AT THIS TIME.
--- NOTE | 2018-10-23 03:26 | NUR ---
PT STILL UNABLE TO GIVE URINE AT THIS TIME
--- NOTE | 2018-10-23 04:20 | NUR ---
Shawn nogueira in [facility] - 10/23/18 at 0432 by YOBANY MANUFACTURING ADVISOR AT BEDSIDE FOR BLOOD DRAW
--- NOTE | 2018-10-23 04:58 | NUR ---
PT STILL UNABLE TO GIVE URINE. PT DECLINED CATHETER. WATER GIVEN TO PT.
--- NOTE | 2018-10-23 05:37 | NUR ---
URINE COLLECTED AND SENT TO LAB
--- NOTE | 2018-10-23 05:37 | NUR ---
FINISHING OPERATOR AT BEDSIDE FOR SERUM ALCOHOL REDRAW
--- NOTE | 2018-10-23 05:40 | NUR ---
SOLICITOR PATENT AT BEDSIDE FOR BLOOD DRAW
[2018-10-23 05:45] LABS: APPEARANCE,URINE Clear (CLEAR); BILIRUBIN,URINE Negative (NEGATIVE); BLOOD, URINE Negative Ery/uL (NEGATIVE); COLOR,URINE Yellow (YELLOW); KETONES,URINE Trace (NEGATIVE); LEUKOCYTE ESTERASE ,URINE Negative (NEGATIVE); NITRITE, URINE Negative (NEGATIVE); PH,URINE 5.5 (5.0-8.0); PROTEIN,URINE Negative (NEGATIVE); UGLUCOSE Negative (NEGATIVE); UROBILINOGEN,URINE 0.2 EU/dL (0.2)
[2018-10-23 05:56] LABS: BACTERIA,URINE None seen /HPF (None Seen); RBC,URINE 0-2 /HPF (0-2); SQUAMOUS EPITHELIAL CELL,UR 0-2 /HPF (None Seen); WBC,URINE 0-2 /HPF (0-3)
--- NOTE | 2018-10-23 06:31 | NUR ---
PT IN BED SLEEPING. NAD NOTED.
--- NOTE | 2018-10-23 07:38 | NUR ---
REPORT GIVEN TO MITCHEL RODRÍGUEZ TESSY
--- NOTE | 2018-10-23 08:19 | NUR ---
PT ACCEPTED DR. LUCAS AT [facility]
--- NOTE | 2018-10-23 08:32 | NUR ---
PT STATES HE WANTS TO LEAVE ED. DENIES ANY SUICIDAL IDEATION AT THIS TIME. PT WAS INFORMED THAT HE HAS A BED WAITING FOR HIM AT [facility] AND AGREE JUST TO GO THERE. HOMELESS WAIVER FORM SIGNED BEFORE AM SHIFT.
[2018-10-23 09:07] VITALS: BP 132/77
== END 2018-10-23 08:32 | disposition home or self-care (01) ==
LOC: ER 01:54
DX: R45.851 Suicidal ideations (principal); F10.129 Alcohol abuse with intoxication, unspecified; J45.909 Unspecified asthma, uncomplicated; F20.9 Schizophrenia, unspecified; F31.9 Bipolar disorder, unspecified; F17.200 Nicotine dependence, unspecified, uncomplicated; Y90.4 Blood alcohol level of 80-99 mg/100 ml; Z59.0 Homelessness
CPT/HCPCS: 36415; 80048; 80076; 80305; 80307 ×2; 80329; 81001; 85025; 99284; G0480; 81000-TC

== ENCOUNTER → 2018-11-13 | Emergency (ER) | payer OTHER ==
--- NOTE | 2018-11-13 13:21 | NUR ---
pt called to triage, pt not in waiting room
--- NOTE | 2018-11-13 13:38 | NUR ---
pt called to triage, pt not in waiting room
--- NOTE | 2018-11-13 13:42 | NUR ---
pt eloped from facility
== END | disposition left against medical advice (07) ==
LOC: ER 13:04
DX: Z53.21 Procedure and treatment not carried out due to patient leaving prior to being seen by health care provider (principal)

== ENCOUNTER 2018-11-14 08:30 | Emergency (ER) | payer OTHER ==
[~2018-11-14] VITALS: Ht 190.5 cm; Wt 102.1 kg
[2018-11-14] MEDS ORDERED: LORAZEPAM 1 MG TABLET ONE (08:42)
--- NOTE | 2018-11-14 08:51 | NUR ---
PATIENT [id number], ANXIETY +ETOH, +SI NO PLAN AT THIS TIME, -HI. PATIENT A&O X 3, NO ACUTE DISTRESS. DENIES ANY PAIN OR DISCOMFORT. RESTING ON BED
[2018-11-14] MEDS ORDERED: LORAZEPAM 1 MG TABLET PO ONE (09:00)
--- NOTE | 2018-11-14 09:46 | NUR ---
URINE COLLECTED AND SEND TO LAB
--- NOTE | 2018-11-14 11:30 | NUR ---
PATIENT AWAKE, ALERT AND ORIENTED X 4, VERBALLY RESPONSIVE, NO ACUTE DISTRESS. DENIES ANY PAIN OR DISCOMFORT. PATIENT DENIES SI/HI. VERBALIZED HE ONLY SAID IT SO HE CAN STAY HERE. CLEARED BY DR MENSAH FOR DISCHARGE AND VERIFIED WITH MD. PATIENT MADE AWARE AND VERBALIZED UNDERSTANDING. GIVEN HANDOUTS TO PATIENT, PATIENT REFUSED TO HAVE ANY REFERRALS DONE, REQUESTED TO HAVE TAP CARD BUT REFUSED OTHER RESOURCES. RUBBER BLOCK LAYER AWARE.
--- NOTE | 2018-11-14 12:21 | NUR ---
Patient discharged in stable condition. no acute distress. denies any pain or discomfort. denies si/hi. written and verbal after care instructions given. Patient verbalizes understanding of instruction. Tap card provided to patient. name band removed.
[2018-11-14 12:24] VITALS: BP 128/80
== END 2018-11-14 12:27 | disposition home or self-care (01) ==
LOC: ER 08:33
DX: F10.129 Alcohol abuse with intoxication, unspecified (principal); F41.9 Anxiety disorder, unspecified; F20.9 Schizophrenia, unspecified; F31.9 Bipolar disorder, unspecified; F17.200 Nicotine dependence, unspecified, uncomplicated; J45.909 Unspecified asthma, uncomplicated; Y90.9 Presence of alcohol in blood, level not specified; Z59.0 Homelessness